=== PATIENT | female | born 1995 | race Caucasian/White ===

== ENCOUNTER 2016-07-25 22:38 | Emergency (ER) | payer OTHER ==
[~2016-07-25 22:38] MED LIST: MOTRIN800 MG PO
[2016-07-26 00:20] VITALS: BP 124/64
== END 2016-07-26 00:20 | disposition home or self-care (01) ==
LOC: ED 22:38
DX: K29.70 Gastritis, unspecified, without bleeding (principal); G43.909 Migraine, unspecified, not intractable, without status migrainosus; Z90.49 Acquired absence of other specified parts of digestive tract
CPT/HCPCS: Q0162

== ENCOUNTER 2016-10-10 01:41 | Emergency (ER) | payer OTHER ==
[2016-10-10 04:43] VITALS: BP 119/71
== END 2016-10-10 04:43 | disposition home or self-care (01) ==
LOC: ED 01:41
DX: T83.89XA Other specified complication of genitourinary prosthetic devices, implants and grafts, initial encounter (principal); M54.2 Cervicalgia; N93.9 Abnormal uterine and vaginal bleeding, unspecified; R10.13 Epigastric pain; Z87.19 Personal history of other diseases of the digestive system

== ENCOUNTER 2017-05-27 09:04 | Emergency (ER) | payer OTHER ==
[~2017-05-27] VITALS: Ht 157.5 cm; Wt 75.3 kg
[2017-05-27 09:18] VITALS: Ht 157.5 cm; Wt 75.3 kg
[2017-05-27 10:45] LABS: BASOPHIL % 0.4 % (0-2); RED CELL DISTRIBUTION WIDTH 12.3 % (11.5-14.5)
[2017-05-27 10:47] LABS: CALCIUM 9.9 mg/dL (8.5-10.1); CHLORIDE SERUM 103 mmol/L (98-107); CREATININE SERUM 0.8 mg/dL (0.6-1.0); GFR1 > 60 mL/min; GLUCOSE SERUM 105 mg/dL (74-106); POTASSIUM SERUM 3.8 mmol/L (3.5-5.1); SODIUM SERUM 138 mmol/L (136-145)
[2017-05-27 10:52] LABS: ALKALINE PHOSPHATASE 81 U/L (46-116); ALT/SGPT 175 U/L (14-59); AST/SGOT 86 U/L (15-37); BILIRUBIN TOTAL 0.62 mg/dL (0.20-1.00); LIPASE 149 IU/L (73-393); PLATELET COUNT 427 x10^3mcL (130-400); TOTAL PROTEIN, SERUM 9.9 g/dL (6.4-8.2)
[2017-05-27 13:03] VITALS: BP 104/62
== END 2017-05-27 13:02 | disposition home or self-care (01) ==
LOC: ED 09:04
PROVIDERS: Emergency Medicine
DX: E86.0 Dehydration (principal); R11.10 Vomiting, unspecified; R10.9 Unspecified abdominal pain
CPT/HCPCS: J2270; J7030

== ENCOUNTER 2018-05-31 00:05 | Emergency (ER) | payer OTHER ==
[~2018-05-31] VITALS: Ht 157.5 cm; Wt 80.3 kg
[2018-05-31 00:18] VITALS: Ht 157.5 cm; Wt 80.3 kg
[2018-05-31 03:15] VITALS: BP 144/91
== END 2018-05-31 03:15 | disposition home or self-care (01) ==
LOC: ED 00:05
DX: H81.13 Benign paroxysmal vertigo, bilateral (principal); E11.9 Type 2 diabetes mellitus without complications; G43.909 Migraine, unspecified, not intractable, without status migrainosus; Z90.49 Acquired absence of other specified parts of digestive tract; Z79.84 Long term (current) use of oral hypoglycemic drugs
CPT/HCPCS: 82962; J8597; Q0162

== ENCOUNTER 2018-06-26 12:25 | Emergency (ER) | payer OTHER ==
[~2018-06-26] VITALS: Ht 160 cm; Wt 79.4 kg
[2018-06-26 12:55] VITALS: Ht 160 cm; Wt 79.4 kg
[2018-06-26 15:36] VITALS: BP 115/79
== END 2018-06-26 15:36 | disposition home or self-care (01) ==
LOC: ED 12:25
DX: K64.9 Unspecified hemorrhoids (principal); E66.9 Obesity, unspecified; G43.909 Migraine, unspecified, not intractable, without status migrainosus; Z68.31 Body mass index [BMI] 31.0-31.9, adult; Z90.49 Acquired absence of other specified parts of digestive tract

== ENCOUNTER 2019-04-21 18:15 | Emergency (ER) | payer OTHER ==
[~2019-04-21] VITALS: Ht 157.5 cm; Wt 83.9 kg
[2019-04-21 18:38] VITALS: Ht 157.5 cm; Wt 83.9 kg
[2019-04-21 20:00] VITALS: BP 127/86
== END 2019-04-21 20:00 | disposition home or self-care (01) ==
LOC: ED 18:15
DX: F41.9 Anxiety disorder, unspecified (principal); Z90.49 Acquired absence of other specified parts of digestive tract

== ENCOUNTER 2019-06-18 07:54 | Emergency (ER) | payer OTHER ==
[~2019-06-18] VITALS: Ht 157.5 cm; Wt 77.1 kg
[2019-06-18 08:06] VITALS: Ht 157.5 cm; Wt 77.1 kg
[2019-06-18 08:39] VITALS: BP 124/64
== END 2019-06-18 08:39 | disposition home or self-care (01) ==
LOC: ED 07:54
DX: M62.830 Muscle spasm of back (principal); M54.2 Cervicalgia; M25.512 Pain in left shoulder; G43.909 Migraine, unspecified, not intractable, without status migrainosus; Z88.4 Allergy status to anesthetic agent; Z87.19 Personal history of other diseases of the digestive system; Z90.49 Acquired absence of other specified parts of digestive tract

== ENCOUNTER 2019-06-23 12:12 | Emergency (ER) | payer OTHER ==
[~2019-06-23] VITALS: Ht 162.6 cm; Wt 68.0 kg
[2019-06-23 12:18] VITALS: Ht 162.6 cm; Wt 68.0 kg
[2019-06-23 13:27] VITALS: BP 107/59
== END 2019-06-23 13:27 | disposition home or self-care (01) ==
LOC: ED 12:12
DX: O99.341 Other mental disorders complicating pregnancy, first trimester (principal); F41.9 Anxiety disorder, unspecified; G43.909 Migraine, unspecified, not intractable, without status migrainosus; Z3A.01 Less than 8 weeks gestation of pregnancy; Z88.8 Allergy status to other drugs, medicaments and biological substances